=== PATIENT | female | born 1955 ===

== ENCOUNTER 2016-08-20 21:39 | Emergency (ER) | payer SELFPAY ==
[2016-08-20 22:32] VITALS: BP 93/59
[2016-08-20 23:25] LABS: Hematocrit 47.7 % (30.3-42.9); Hemoglobin 14.9 gm/dl (10.1-14.3); Mean Corpuscular HGB Conc 31 % (30-34); Mean Corpuscular Volume 81 fl (79-97); Platelet Count 333 K/mm3 (140-440); Red Cell Distribution Width 14.8 % (13.2-15.2); White Blood Count 14.2 K/mm3 (4.5-11.0)
[2016-08-20 23:35] LABS: Mean Corpuscular Hemoglobin 25 pg (28-32)
[2016-08-21 00:20] LABS: Albumin 3.8 g/dL (3.9-5); Albumin/Globulin Ratio 1.5 %; BUN/Creatinine Ratio 9.54; Bilirubin,Total 0.7 mg/dL (0.1-1.2); Calcium 9.3 mg/dL (8.4-10.2); Chloride 105.9 mmol/L (98-107); Potassium 5.2 mmol/L (3.6-5.0); Total Protein 6.4 g/dL (6.3-8.2)
[2016-08-21 00:38] LABS: Bacteria,Urine 2+ /HPF (Negative); Bilirubin,Urine NEG (Negative); Blood,Urine NEG (Negative); Ketones,Urine TR mg/dL (Negative); Leukocyte Esterase,Urine SM (Negative); Mucus,Urine 2+ /HPF; Nitrite,Urine NEG (Negative); Urobilinogen,Urine < 2.0 mg/dL (<2.0)
[2016-08-21 02:57] LABS: Basophils % (Manual) 0 % (0.0-1.8); Blastocytes % (Manual) 0 %; Eosinophils % (Manual) 0 % (0.0-4.3)
[2016-08-21 03:02] LABS: Diff Status Complete; Hypochromasia 1+
--- NOTE | 2016-08-22 15:18 | ED Elopement Review ---
ED Pt Elopement review - Results review Lab results: Laboratory Tests 08/20/16 08/20/16 08/20/16 23:07 23:07 Unknown WBC 14.2 H RBC 5.90 H Hgb 14.9 H Hct 47.7 H MCV 81 MCH 25 L MCHC 31 RDW 14.8 Plt Count 333 Add Manual Diff Complete Total Counted 100 Seg Neuts % (Manual) 73.0 H Band Neutrophils % 10.0 Lymphocytes % (Manual) 12.0 L Reactive Lymphs % (Man) 0 Monocytes % (Manual) 2.0 Eosinophils % (Manual) 0 Basophils % (Manual) 0 Metamyelocytes % 3.0 Myelocytes % 0 Promyelocytes % 0 Blast Cells % 0 Nucleated RBC % Not Reportable Seg Neutrophils # Man 10.4 H Band Neutrophils # 1.4 Lymphocytes # (Manual) 1.7 Abs React Lymphs (Man) 0.0 Monocytes # (Manual) 0.3 Eosinophils # (Manual) 0.0 Basophils # (Manual) 0.0 Metamyelocytes # 0.4 Myelocytes # 0.0 Promyelocytes # 0.0 Blast Cells # 0.0 WBC Morphology Not Reportable Hypersegmented Neuts Not Reportable Hyposegmented Neuts Not Reportable Hypogranular Neuts Not Reportable Smudge Cells Not Reportable Toxic Granulation Not Reportable Toxic Vacuolation Not Reportable Dohle Bodies Not Reportable Pelger-Huet Anomaly Not Reportable Rhea Rods Not Reportable Platelet Estimate Appears normal Clumped Platelets Not Reportable Plt Clumps, EDTA Not Reportable Large Platelets Not Reportable Giant Platelets Not Reportable Platelet Satelliting Not Reportable Plt Morphology Comment Not Reportable RBC Morphology Not Reportable Dimorphic RBCs Not Reportable Polychromasia Not Reportable Hypochromasia 1+ Poikilocytosis Not Reportable Anisocytosis Not Reportable Microcytosis Not Reportable Macrocytosis Not Reportable Spherocytes Not Reportable Pappenheimer Bodies Not Reportable Sickle Cells Not Reportable Target Cells Not Reportable Tear Drop Cells Not Reportable Ovalocytes Not Reportable Helmet Cells Not Reportable [place]-Stone[place] Bodies Not Reportable Petroleum Rings Not Reportable Jose Cells Not Reportable Bite Cells Not Reportable Crenated Cell Not Reportable Elliptocytes Not Reportable Acanthocytes (Spur) Not Reportable Rouleaux Not Reportable Hemoglobin C Crystals Not Reportable Schistocytes Not Reportable Malaria parasites Not Reportable Francisco Bodies Not Reportable Hem Pathologist Commnt No Sodium 142 Potassium 5.2 H Chloride 105.9 Carbon Dioxide 16 L Anion Gap 25 BUN 21 H Creatinine 2.2 H Estimated GFR 23 BUN/Creatinine Ratio 9.54 Glucose 236 H Calcium 9.3 Total Bilirubin 0.7 AST 20 ALT 13 Alkaline Phosphatase 101 Total Protein 6.4 Albumin 3.8 L Albumin/Globulin Ratio 1.5 Lipase 26 Urine Color Vikki Urine Turbidity Clear Urine pH 5.0 Ur Specific [place] 1.025 Urine Protein 30 mg/dl Urine Glucose (UA) Neg Urine Ketones Tr Urine Blood Neg Urine Nitrite Neg Urine Bilirubin Neg Urine Urobilinogen < 2.0 Ur Leukocyte Esterase Sm Urine WBC (Auto) 10.0 H Urine RBC (Auto) 7.0 U Epithel Cells (Auto) 15.0 H Urine Bacteria (Auto) 2+ Hyaline Casts 110 Urine Mucus 2+ - Call Back decision Pt Call Back Decision: Call pt to return to ED BEATA (acute renal failure increased AG hyperK)
== END 2016-08-21 00:50 | disposition left against medical advice (07) ==
LOC: ED 21:39
DX: R10.9 Unspecified abdominal pain (principal); Z53.21 Procedure and treatment not carried out due to patient leaving prior to being seen by health care provider
CPT/HCPCS: 36415; 80053; 81001; 83690; 85007; 85025

== ENCOUNTER 2016-08-22 18:37 | Emergency (ER) | payer MEDICAID ==
[2016-08-22] MEDS ORDERED: NACL 0.9% 1000 ML 1,000 ML IV ONE (19:51)
--- NOTE | 2016-08-22 19:55 | Emergency Department Report ---
HPI - General Chief Complaint: Laceration/Recheck/Suture Time Seen by Provider: 08/22/16 19:25 - HPI HPI: This is a 61-year-old Afro-Naur[place] female presents to the emergency department with a 2-3 day history of generalized abdominal pain and nausea without vomiting. Patient said she ate some pineapple out of a can on Tuesday and shortly afterwards began having these symptoms. She came by ambulance to the emergency department at that time for evaluation but left prior to seeing a physician. She was called back to the emergency department after labs showed her to have some mild hyperkalemia and some renal insufficiency. Patient says she has a history of hypertension. She does not have a primary care doctor if she just moved here from [place]. She still has the symptoms from Tuesday. She has not taken anything for her symptoms prior to presentation. She denies any fever, diarrhea, back pain, dysuria, vaginal bleeding or discharge. ED Past Medical Hx - Past Medical History Previous Medical History?: Yes Hx Hypertension: Yes - Surgical History Past Surgical History?: Yes Additional Surgical History: bilateral wrist surg. TL - Social History Smoking Status: Never Smoker Substance Use Type: None ED Review of Systems ROS: Stated complaint: MEDICAL FOLLOW UP Other details as noted in HPI Comment: All other systems reviewed and negative Constitutional: denies: chills, fever Eyes: denies: eye pain, eye discharge, vision change ENT: denies: ear pain, throat pain Respiratory: denies: cough, shortness of breath, wheezing Cardiovascular: denies: chest pain, palpitations Gastrointestinal: abdominal pain, nausea. denies: vomiting Genitourinary: denies: urgency, dysuria, discharge Musculoskeletal: denies: back pain, joint swelling, arthralgia Skin: denies: rash, lesions Neurological: denies: headache, weakness, paresthesias Physical Exam - Physical Exam Vital Signs: Vital Signs 08/22/16 18:50 Temperature 98.7 F Pulse Rate 74 Respiratory 18 Rate Blood Pressure 146/59 O2 Sat by Pulse 98 Oximetry Physical Exam: GENERAL: The patient is well-developed well-nourished. HEENT: Normocephalic. Atraumatic. Extraocular motions are intact. Patient has moist mucous membranes. Pupils equal reactive to light bilaterally. NECK: Supple. Trachea is midline. CHEST/LUNGS: Clear to auscultation. There is no respiratory distress noted. HEART/CARDIOVASCULAR: Regular. There is no tachycardia. There is no gallop rub or murmur. ABDOMEN: Abdomen is soft. There is generalized tenderness to palpation of the abdomen. No guarding rebound tenderness. No peritoneal signs. Patient has normal bowel sounds. There is no abdominal distention. SKIN: There is no rash. There is no edema. There is no diaphoresis. NEURO: The patient is awake, alert, and oriented. The patient is cooperative. The patient has no focal neurologic deficits. The patient has normal speech. MUSCULOSKELETAL: There is no tenderness or deformity. There is no limitation range of motion. There is no evidence of acute injury. ED Course Vital Signs 08/22/16 18:50 Temperature 98.7 F Pulse Rate 74 Respiratory 18 Rate Blood Pressure 146/59 O2 Sat by Pulse 98 Oximetry ED Medical Decision Making - Lab Data Result diagrams: 08/22/16 20:37 08/22/16 20:37 - Radiology Data Radiology results: report reviewed, image reviewed interpreted by me: X-ray of the abdomen does not show any acute process. CT of the abdomen and pelvis without contrast does not show any acute process. - Medical Decision Making This is a 61-year-old female presents the emergency department with a three-day history of some abdominal pain. There is been some nausea and vomiting as well but that was mostly when it first began. The patient was here on Tuesday, 48 hours ago, but was not seen by a physician because she did not stay past getting her blood drawn. At that time she was found to have some renal insufficiency with a creatinine of 2.2 and a GFR of 23%. She was called back because of an elopement review the patient says she is still having the same discomfort. She has some tenderness to palpation of the abdomen but no peritoneal signs, guarding or rebound tenderness. Vital signs stable throughout her ED course. Her labs were rechecked today and she show some improvement in her renal insufficiency with a current creatinine of 1.4 and a GFR of 38%. An abdominal x-ray was done that does not show any acute process. To evaluate her abdominal discomfort as well as renal insufficiency, a CT of the abdomen and pelvis without contrast was done. He came back normal including normal appearing kidneys without any signs of hydronephrosis, nephrolithiasis or any other abnormalities. Upon reevaluation the patient is feeling slightly improved despite the fact that she did not get any pain medication. Since the patient shows some improvement of her renal insufficiency and it is not at the level that requires any dialysis and there are no electrolyte abnormalities, the patient appears safe for discharge home. Her abdominal discomfort is improved. There has been no further signs of nausea or vomiting in the emergency department. The patient was given multiple referrals for primary care and for nephrology. She's been encouraged to follow- up in the next 24-48 hours with these physicians. She will return to the ER with any worsening of her symptoms or any acute distress. - Differential Diagnosis colitis, diverticulitis, nephrolithiasis, hydronephrosis Critical Care Time: No Critical care attestation.: If time is entered above; I have spent that time in minutes in the direct care of this critically ill patient, excluding procedure time. ED Disposition Clinical Impression: Renal insufficiency Abdominal pain Qualifiers: Abdominal location: generalized Qualified Code(s): R10.84 - Generalized abdominal pain Disposition: DISCHARGED TO HOME OR SELFCARE Is pt being admited?: No Condition: Stable Instructions: Abdominal Pain (ED), Impaired Kidney Function (ED) Additional Instructions: Please follow-up with a primary care doctor and a home security professional as soon as you can. Return to the emergency department with any worsening of your symptoms or any acute distress. Referrals: PRIMARY CARE, [Primary Care Provider] - 3-5 Days BRAYAN TURCIOS MD [Staff Physician] - 3-5 Days OSCAR DUPONT MD [Staff Physician] - 3-5 Days OLIVIA LIM MD [Staff Physician] - 3-5 Days ANGELA HERNANDEZ JR, MD [Staff Physician] - 3-5 Days JAMILA LOVE MD [Staff Physician] - 3-5 Days SUSY BECKHAM MD [Staff Physician] - 3-5 Days Time of Disposition: 23:20
[2016-08-22 20:35] VITALS: BP 148/78
[2016-08-22 21:13] LABS: Albumin 3.6 g/dL (3.9-5); Albumin/Globulin Ratio 1.1 %; BUN/Creatinine Ratio 19.28; Chloride 103.7 mmol/L (98-107); Potassium 4.2 mmol/L (3.6-5.0); Total Protein 6.8 g/dL (6.3-8.2)
[2016-08-22 21:15] LABS: Bacteria,Urine 1+ /HPF (Negative); Bilirubin,Urine NEG (Negative); Blood,Urine SM (Negative); Ketones,Urine NEG (Negative); Leukocyte Esterase,Urine TR (Negative); Mucus,Urine FEW /HPF; Nitrite,Urine NEG (Negative); Protein,Urine <15 mg/dL mg/dL (Negative); Urobilinogen,Urine < 2.0 mg/dL (<2.0)
[2016-08-22 21:17] LABS: Mean Corpuscular HGB Conc 30 % (30-34); Mean Corpuscular Volume 84 fl (79-97); Platelet Count 204 K/mm3 (140-440); Red Blood Count 4.88 M/mm3 (3.65-5.03); Red Cell Distribution Width 15.2 % (13.2-15.2); White Blood Count 6.1 K/mm3 (4.5-11.0)
[2016-08-22 21:23] LABS: Mean Corpuscular Hemoglobin 25 pg (28-32)
[2016-08-22 21:29] LABS: Hematocrit 40.8 % (30.3-42.9)
[2016-08-22 21:30] LABS: Hemoglobin 12.2 gm/dl (10.1-14.3)
[2016-08-22 21:33] LABS: Eosinophils % (Auto) 1.6 % (0.0-4.3)
[2016-08-22 21:34] LABS: Basophils % (Auto) 0.6 % (0.0-1.8)
[2016-08-22 21:35] LABS: Diff Status Complete
--- NOTE | 2016-08-22 23:06 | Cat Scan Report ---
FINAL REPORT EXAM: CT ABDOMEN PELVIS WO CON HISTORY: abd pain TECHNIQUE: CT images obtained through the Abdomen and Pelvis without contrast. Transaxial,coronal and sagittal reformats are provided. PRIORS: None. FINDINGS: Imaged intrathoracic contents are unremarkable. Kidneys are normal in size, axis and position. No hydronephrosis or nephrolithiasis. The ureters are normal in course and caliber. No stones are seen within the urinary bladder. Punctate calcified left hepatic granuloma. The liver, gallbladder, pancreas, spleen, and adrenal glands otherwise demonstrate an unremarkable noncontrast appearance. Hollow enteric organs are normal in course and caliber. Appendix is normal. No intra-abdominal free air/fluid or lymphadenopathy. Aorta is normal in course and caliber. Anteverted uterus. No free fluid in the pelvis. Superficial soft tissues are unremarkable. No acute or aggressive appearing skeletal findings. IMPRESSION: No acute intra-abdominal process.
--- NOTE | 2016-08-23 08:51 | XRay Report ---
ABDOMEN, 2 views: History: Abdominal pain. There is no evidence of free air beneath the diaphragms. The gas pattern within the abdomen is unremarkable. There is no evidence of bowel dilatation, significant air-fluid levels, or pathologic calcifications. Organ shadows are unremarkable. IMPRESSION: Unremarkable abdomen.
== END 2016-08-22 23:53 | disposition home or self-care (01) ==
LOC: ED 18:37
DX: N28.9 Disorder of kidney and ureter, unspecified (principal); R10.84 Generalized abdominal pain; I10 Essential (primary) hypertension
CPT/HCPCS: 36415; 74020; 74176; 80053; 81001; 83690; 85025; 96360; 99284; J7030

== ENCOUNTER 2017-04-16 19:41 | Inpatient (IN) | payer MEDICARE ==
[2017-04-16] MEDS ORDERED: CATAPRES PO ONE (20:15)
[2017-04-16 20:38] LABS: Basophils % (Auto) 0.6 % (0.0-1.8); Eosinophils % (Auto) 1.5 % (0.0-4.3); Mean Corpuscular HGB Conc 32 % (30-34); Mean Corpuscular Hemoglobin 26 pg (28-32); Mean Corpuscular Volume 82 fl (79-97); Platelet Count 239 K/mm3 (140-440); Red Blood Count 5.28 M/mm3 (3.65-5.03); Red Cell Distribution Width 14.8 % (13.2-15.2); White Blood Count 6.1 K/mm3 (4.5-11.0)
[2017-04-16 20:58] LABS: Anion Gap 18 mmol/L; BUN/Creatinine Ratio 11; Blood Urea Nitrogen 11 mg/dL (7-17); Calcium 9.4 mg/dL (8.4-10.2); Carbon Dioxide 26 mmol/L (22-30); Chloride 102.3 mmol/L (98-107); Glucose 180 mg/dL (65-100); Potassium 3.9 mmol/L (3.6-5.0); Sodium 142 mmol/L (137-145)
[2017-04-17] MEDS ORDERED: PEPCID IV ONE (03:48)
[2017-04-17] MEDS ORDERED: BABY ASPIRIN PO ONE (03:48)
[2017-04-17] MEDS ORDERED: NACL 0.9% 500 ML 500 ML IV ONE (03:48)
[2017-04-17] MEDS ORDERED: CARAFATE PO ONE (03:48)
[2017-04-17] MEDS ORDERED: NITROSTAT SL PRN (03:48)
--- NOTE | 2017-04-17 03:49 | Emergency Department Report ---
ED Chest Pain HPI - General Chief Complaint: Chest Pain Stated Complaint: CP; HTN Time Seen by Provider: 04/17/17 03:37 Source: patient, RN notes reviewed, old records reviewed Mode of arrival: Ambulatory Limitations: No Limitations - History of Present Illness Initial Comments: This is a 62-year-old female. Patient is previously known to this provider. Has a past medical history of hypertension and high cholesterol. Reports that her father of a massive heart attack, reports that her sister while on the operating room table, supposed to get open-heart surgery. Last stress test was approximately 2 years ago, takes aspirin on a daily basis. Presents to the etiology of sided chest wall pain. The pain has been present for 2 to 3 days. It does not radiate anywhere. It has no exacerbating or relieving factors. There is no neck pain, shortness of breath, vomiting, diaphoresis. There is no leg pain, there is no leg swelling, no recent surgeries, no recent hospitalizations. MD Complaint: chest pain -: Gradual Onset: during rest Pain Location: left chest Pain Radiation: none Severity: mild Severity scale (0 -10): 10 Quality: aching Consistency: intermittent Improves With: nothing Worsens With: nothing Aspirin use within the Past 7 Days: (1) Yes - Related Data On Oral Contraceptives: No Home Medications Medication Instructions Recorded Confirmed Last Taken Aspirin BABY CHEW TAB 81 mg PO DAILY 04/16/17 04/16/17 Unknown AtorvaSTATin 10 mg PO DAILY 04/16/17 04/16/17 Unknown Clonidine 0.1 mg PO BID 04/16/17 04/16/17 Unknown Lisinopril 20 mg PO DAILY 04/16/17 04/16/17 Unknown Allergies Allergy/AdvReac Type Severity Reaction Status Date / Time cephalexin monohydrate Allergy Hives Verified 04/17/17 03:41 [From Keflex] ciprofloxacin [From Cipro] Allergy Hives Verified 04/17/17 03:41 erythromycin base Allergy Hives Verified 04/17/17 03:41 ibuprofen Allergy Hives Verified 04/17/17 03:41 naproxen Allergy Hives Verified 04/17/17 03:41 Penicillins Allergy Hives Verified 04/17/17 03:41 Sulfa (Sulfonamide Allergy Hives Verified 04/17/17 03:41 Antibiotics) tramadol Allergy Hives Verified 04/17/17 03:41 Heart Score - HEART Score History: Slightly suspicious EKG: Non-specific Age: 45-65 Risk factors: > 3 risk factors or hx of atherosclerotic disease Troponin: < normal limit HEART Score: 4 - Critical Actions Critical Actions: 4-6 pts:12-16.6% risk of adverse cardiac event. Should be admitted ED Review of Systems ROS: Stated complaint: CP; HTN Other details as noted in HPI Constitutional: denies: fever Eyes: denies: vision change ENT: denies: epistaxis Respiratory: denies: cough Cardiovascular: chest pain Gastrointestinal: denies: nausea, vomiting Musculoskeletal: as per HPI. denies: back pain Skin: as per HPI Neurological: as per HPI Psychiatric: as per HPI ED Past Medical Hx - Past Medical History Hx Hypertension: Yes Additional medical history: Elevated cholesterol - Surgical History Additional Surgical History: bilateral wrist surg. TL - Social History Smoking Status: Never Smoker Substance Use Type: None - Medications Home Medications: Home Medications Medication Instructions Recorded Confirmed Last Taken Type Aspirin BABY CHEW TAB 81 mg PO DAILY 04/16/17 04/16/17 Unknown History AtorvaSTATin 10 mg PO DAILY 04/16/17 04/16/17 Unknown History Clonidine 0.1 mg PO BID 04/16/17 04/16/17 Unknown History Lisinopril 20 mg PO DAILY 04/16/17 04/16/17 Unknown History ED Physical Exam - General Limitations: No Limitations General appearance: alert, in no apparent distress - Head Head exam: Present: atraumatic, normocephalic - Eye Eye exam: Present: normal appearance, EOMI. Absent: nystagmus - ENT ENT exam: Present: normal exam, normal orophraynx, mucous membranes moist, normal external ear exam - Neck Neck exam: Present: normal inspection - Respiratory Respiratory exam: Present: normal lung sounds bilaterally, other (breast exam within normal limits. During breast examination, escorted by nurse Geovanni Carrera.) . Absent: respiratory distress, chest wall tenderness - Cardiovascular Cardiovascular Exam: Present: regular rate, normal rhythm, normal heart sounds. Absent: systolic murmur, diastolic murmur, rubs, gallop - GI/Abdominal GI/Abdominal exam: Present: soft, normal bowel sounds. Absent: distended, tenderness, guarding, rebound, rigid, pulsatile mass - Extremities Exam Extremities exam: Present: normal inspection, full ROM, normal capillary refill. Absent: pedal edema, joint swelling, calf tenderness - Back Exam Back exam: Present: normal inspection, full ROM. Absent: tenderness, CVA tenderness (R), paraspinal tenderness, vertebral tenderness - Neurological Exam Neurological exam: Present: alert, oriented X3, CN II-XII intact, other ( Extraocular movements intact. Tongue midline. No facial droop. Facial sensation intact to light touch in the V1, V2, V3 distribution bilaterally. 5 and 5 strength in 4 extremities.. Sensation is intact to light touch in 4 extremities.). Absent: motor sensory deficit - Psychiatric Psychiatric exam: Present: normal affect, normal mood - Skin Skin exam: Present: warm, dry, intact, normal color. Absent: rash ED Course Vital Signs 04/16/17 04/16/17 04/17/17 19:56 20:26 00:05 Temperature 98.4 F 97.7 F Pulse Rate 103 H 103 H 73 Respiratory 18 16 Rate Blood Pressure 181/82 182/82 99/54 Blood Pressure [Left] O2 Sat by Pulse 97 100 Oximetry 04/17/17 04/17/17 03:56 04:30 Temperature 98.2 F Pulse Rate 55 L 52 L Respiratory 16 15 Rate Blood Pressure 98/49 Blood Pressure 106/35 [Left] O2 Sat by Pulse 99 96 Oximetry CARMELO score - Carmelo Score Age > 65: (0) No Aspirin use within the Past 7 Days: (1) Yes 3 or more CAD Risk Factors: (1) Yes 2 or more Angina events in past 24 hrs: (1) Yes Known CAD with more than 50% Stenosis: (0) No Elevated Cardiac Markers: (0) No ST Deviation Greater than 0.5mm: (0) No CARMELO Score: 3 ED Medical Decision Making - Lab Data Result diagrams: 04/16/17 20:17 04/16/17 20:17 Vital Signs 04/16/17 04/16/17 04/17/17 19:56 20:26 00:05 Temperature 98.4 F 97.7 F Pulse Rate 103 H 103 H 73 Respiratory 18 16 Rate Blood Pressure 181/82 182/82 99/54 O2 Sat by Pulse 97 100 Oximetry Lab Results 04/16/17 04/16/17 04/16/17 Range/Units 20:17 20:17 23:24 WBC 6.1 (4.5-11.0) K/mm3 RBC 5.28 H (3.65-5.03) M/mm3 Hgb 14.0 (10.1-14.3) gm/dl Hct 43.0 H (30.3-42.9) % MCV 82 (79-97) fl MCH 26 L (28-32) pg MCHC 32 (30-34) % RDW 14.8 (13.2-15.2) % Plt Count 239 (140-440) K/mm3 Lymph % (Auto) 37.4 H (13.4-35.0) % [place] % (Auto) 8.0 H (0.0-7.3) % Eos % (Auto) 1.5 (0.0-4.3) % Baso % (Auto) 0.6 (0.0-1.8) % Lymph # 2.3 (1.2-5.4) K/mm3 [place] # 0.5 (0.0-0.8) K/mm3 Eos # 0.1 (0.0-0.4) K/mm3 Baso # 0.0 (0.0-0.1) K/mm3 Seg Neutrophils % 52.5 (40.0-70.0) % Seg Neutrophils # 3.2 (1.8-7.7) K/mm3 Sodium 142 (137-145) mmol/L Potassium 3.9 (3.6-5.0) mmol/L Chloride 102.3 (98-107) mmol/L Carbon Dioxide 26 (22-30) mmol/L Anion Gap 18 mmol/L BUN 11 (7-17) mg/dL Creatinine 1.0 (0.7-1.2) mg/dL Estimated GFR 56 ml/min BUN/Creatinine Ratio 11 % Glucose 180 H (65-100) mg/dL Calcium 9.4 (8.4-10.2) mg/dL Troponin T < 0.010 < 0.010 (0.00-0.029) ng/mL 04/17/17 Range/Units 02:52 WBC (4.5-11.0) K/mm3 RBC (3.65-5.03) M/mm3 Hgb (10.1-14.3) gm/dl Hct (30.3-42.9) % MCV (79-97) fl MCH (28-32) pg MCHC (30-34) % RDW (13.2-15.2) % Plt Count (140-440) K/mm3 Lymph % (Auto) (13.4-35.0) % [place] % (Auto) (0.0-7.3) % Eos % (Auto) (0.0-4.3) % Baso % (Auto) (0.0-1.8) % Lymph # (1.2-5.4) K/mm3 [place] # (0.0-0.8) K/mm3 Eos # (0.0-0.4) K/mm3 Baso # (0.0-0.1) K/mm3 Seg Neutrophils % (40.0-70.0) % Seg Neutrophils # (1.8-7.7) K/mm3 Sodium (137-145) mmol/L Potassium (3.6-5.0) mmol/L Chloride (98-107) mmol/L Carbon Dioxide (22-30) mmol/L Anion Gap mmol/L BUN (7-17) mg/dL Creatinine (0.7-1.2) mg/dL Estimated GFR ml/min BUN/Creatinine Ratio % Glucose (65-100) mg/dL Calcium (8.4-10.2) mg/dL Troponin T < 0.010 (0.00-0.029) ng/mL - EKG Data -: EKG Interpreted by Me - EKG Data 04/17/17 03:56 EKG #1 demonstrates normal sinus, 85 bpm, QTC within normal limits, atrial enlargement, not morphologically consistent with ST elevation myocardial infarction. EKG #2 unchanged, with exception of Q waves in 1 and aVL, not morphologically consistent with STEMI, appears unchanged from prior. - Radiology Data Radiology results: image reviewed interpreted by me: X-ray of the chest, interpreted by me: - Medical Decision Making Differential diagnosis, including but not limited to: Acute coronary syndrome, pneumonia, GERD, gastritis, costochondritis, reflux, hiatal hernia Assessment and plan: 62-year-old female with chest pain and no shortness of breath. Very strong family history, multiple vascular risk factors, clinical history atypical, however given such strong family history, patient will be admitted to the hospital for acute coronary syndrome risk stratification. There are no pulmonary embolus or DVT risk factors and I find the patient to be low risk clinically and by well's criteria. She was hypertensive in the waiting room, and was given clonidine, her blood pressure slightly decreased upon arrival into the treatment room, and patient will be given IV fluids, and aspirin. Case was presented to the Hospital physician, Dr. Peter, who accepted the patient to the medical service for acute coronary syndrome or certification. Critical care attestation.: If time is entered above; I have spent that time in minutes in the direct care of this critically ill patient, excluding procedure time. ED Disposition Clinical Impression: Chest pain Disposition: 09 OP ADMIT IP TO THIS HOSP Is pt being admited?: Yes Condition: Good Instructions: Chest Pain (ED) Referrals: PRIMARY CARE, [Primary Care Provider] - 3-5 Days
--- NOTE | 2017-04-17 04:41 | XRay Report ---
FINAL REPORT EXAM: XR CHEST 1V AP HISTORY: cp TECHNIQUE: A portable upright view of the chest was submitted. FINDINGS: The heart size and mediastinum do not show any acute changes. There are calcified granulomas in left hilum. Pleural fluid is not seen. There are EKG leads overlying the chest wall. The bones and soft tissues do not show any acute changes. IMPRESSION: No active chest disease.
[2017-04-17] MEDS ORDERED: MORPHINE IV PRN (05:14)
[2017-04-17] MEDS ORDERED: TYLENOL PO PRN (05:15)
[2017-04-17] MEDS ORDERED: ZOFRAN IV PRN (05:16)
[2017-04-17] MEDS: CATAPRES PO SCH ×2 (06:15→12:10)
[2017-04-17] MEDS ORDERED: LEXISCAN IV ONE ×2 (08:15→08:40)
--- NOTE | 2017-04-17 12:12 | Progress Note ---
Assessment and Plan -Chest pain: likely form GERD Has normal Kaylan x 2. EKG showed nonspecific ST segment changes. Pt has a strong family history of CA Continue with ASA, NTG, [place] and oxygen. had stress thallium today. result pending -Hyperglycemia; Obtain A1c commence SSI. consistent CHO diet - Obesity: BMI 34.9 Dietary counselling given - DVT and Gi prophylaxis: with Lovenox and Pepcid Subjective Date of service: 04/17/17 Principal diagnosis: Chest pain Interval history: Chest pain resolving. No shortness of breath Objective - Constitutional Vitals: Vital Signs - 12hr 04/17/17 04/17/17 04/17/17 00:05 03:56 04:30 Temperature 97.7 F 98.2 F Pulse Rate 73 55 L 52 L Respiratory 16 16 15 Rate Blood Pressure 99/54 98/49 Blood Pressure 106/35 [Left] O2 Sat by Pulse 100 99 96 Oximetry 04/17/17 04/17/17 04/17/17 05:30 06:00 06:15 Temperature Pulse Rate 52 L 52 L 52 L Respiratory 14 11 L Rate Blood Pressure 101/48 101/48 101/48 Blood Pressure [Left] O2 Sat by Pulse 96 100 Oximetry 04/17/17 04/17/17 04/17/17 07:15 08:00 09:44 Temperature 98.3 F 97.7 F Pulse Rate 48 L 45 L 51 L Respiratory 16 20 Rate Blood Pressure Blood Pressure 90/41 103/65 [Left] O2 Sat by Pulse 96 100 Oximetry General appearance: Present: no acute distress, well-nourished - EENT Eyes: PERRL, EOM intact Ears: bilateral: normal - Neck Neck: supple, normal ROM - Respiratory Respiratory effort: normal Respiratory: bilateral: CTA - Cardiovascular Rhythm: regular Heart Sounds: Present: S1 & S2. Absent: gallop, rub Extremities: pulses intact, No edema, normal color, Full ROM - Gastrointestinal General gastrointestinal: Present: soft, non-tender, non-distended, normal bowel sounds - Integumentary Integumentary: clear, warm, dry - Musculoskeletal Musculoskeletal: 1, strength equal bilaterally - Neurologic Neurologic: moves all extremities - Psychiatric Psychiatric: memory intact, appropriate mood/affect, intact judgment & insight - Labs CBC & Chem 7: 04/16/17 20:17 04/16/17 20:17 Labs: Abnormal lab results 04/16/17 04/16/17 Range/Units 20:17 20:17 RBC 5.28 H (3.65-5.03) M/mm3 Hct 43.0 H (30.3-42.9) % MCH 26 L (28-32) pg Lymph % (Auto) 37.4 H (13.4-35.0) % [place] % (Auto) 8.0 H (0.0-7.3) % Glucose 180 H (65-100) mg/dL
[2017-04-17] MEDS: ZESTRIL PO SCH (12:16)
[2017-04-17] MEDS: ASPIRIN PO SCH (12:17)
[2017-04-17] MEDS: HEPARIN SUB-Q SCH ×2 (12:17→21:27)
--- NOTE | 2017-04-17 12:38 | Treadmill Report ---
REASON FOR STUDY: Chest pain. STRESS TEST PROTOCOL: The patient received 0.4 of Lexiscan intravenously over 10 seconds. Tc-99m tetrofosmin was subsequently injected. Baseline EKG, sinus bradycardia. T-wave abnormality. Consider inferior ischemia. Lexiscan EKG, she developed diffuse T-wave abnormalities. No chest pain. No arrhythmias. IMPRESSION: Nondiagnostic due to nonspecific EKG abnormalities. Nuclear imaging report to follow. JOB# [id number] AGO/NTS
--- NOTE | 2017-04-17 15:56 | Consultation ---
History of Present Illness Consult date: 04/17/17 Requesting physician: HOSEA GUERIN Consult reason: chest pain, other (abnormal stress test) History of present illness: She claims that she presented to the emergency department because her blood pressure had been elevated at home for the past 3 days. Three days ago, she started experiencing a sharp precordial chest pain intermittently. After ruling out for acute myocardial infarction, she underwent a pharmacologic stress test with nuclear imaging this morning. Her nuclear scan was technically suboptimal in quality. It revealed a large, partially reversible inferior and inferoseptal defect, as well as a small fixed apical defect. Gated SPECT ejection fraction was 66%. Past History Past Medical History: hypertension, hyperlipidemia Past Surgical History: Other (tubal ligation and bilateral carpal tunnel release ) Social history: denies: smoking, alcohol abuse Family history: CAD Medications and Allergies Allergies Allergy/AdvReac Type Severity Reaction Status Date / Time cephalexin monohydrate Allergy Hives Verified 04/17/17 03:41 [From Keflex] ciprofloxacin [From Cipro] Allergy Hives Verified 04/17/17 03:41 erythromycin base Allergy Hives Verified 04/17/17 03:41 ibuprofen Allergy Hives Verified 04/17/17 03:41 naproxen Allergy Hives Verified 04/17/17 03:41 Penicillins Allergy Hives Verified 04/17/17 03:41 Sulfa (Sulfonamide Allergy Hives Verified 04/17/17 03:41 Antibiotics) tramadol Allergy Hives Verified 04/17/17 03:41 Home Medications Medication Instructions Recorded Confirmed Last Taken Type Aspirin BABY CHEW TAB 81 mg PO DAILY 04/16/17 04/16/17 Unknown History AtorvaSTATin 10 mg PO DAILY 04/16/17 04/16/17 Unknown History Clonidine 0.1 mg PO BID 04/16/17 04/16/17 Unknown History Lisinopril 20 mg PO DAILY 04/16/17 04/16/17 Unknown History Active Meds: Active Medications Acetaminophen (Tylenol) 650 mg PO Q6H PRN PRN Reason: For Pain/Fever/Headache Aspirin (Aspirin) 325 mg PO QDAY [facility] Last Admin: 04/17/17 12:17 Dose: 325 mg Atorvastatin Calcium (Lipitor) 10 mg PO QHS [facility] Clonidine HCl (Catapres) 0.1 mg PO BID [facility] Last Admin: 04/17/17 12:10 Dose: Not Given Heparin Sodium (Porcine) (Heparin) 5,000 unit SUB-Q Q12HR [facility] Last Admin: 04/17/17 12:17 Dose: 5,000 unit Lisinopril (Zestril) 20 mg PO QDAY [facility] Last Admin: 04/17/17 12:16 Dose: Not Given Morphine Sulfate (Morphine) 2 mg IV Q3H PRN PRN Reason: Pain, Moderate (4-6) Nitroglycerin (Nitrostat) 0.4 mg SL .Q5MIN PRN PRN Reason: Chest Pain Ondansetron HCl (Zofran) 4 mg IV Q8H PRN PRN Reason: Nausea And Vomiting Review of Systems Constitutional: no fever, no chills Ears, nose, mouth and throat: no ear pain, no ear discharge, no sore throat Cardiovascular: chest pain, no orthopnea, no palpitations, no lightheadedness, no shortness of breath Respiratory: no cough, no hemoptysis, no shortness of breath Gastrointestinal: no abdominal pain, no nausea, no vomiting, no diarrhea, no constipation Genitourinary Female: no dysuria, no urinary frequency Rectal: no pain, no bleeding Musculoskeletal: no neck stiffness, no neck pain, no myalgias Integumentary: no rash, no pruritis Neurological: no weakness, no parathesias, no numbness, no headaches Endocrine: no cold intolerance, no heat intolerance Hematologic/Lymphatic: no easy bruising, no easy bleeding Allergic/Immunologic: no urticaria, no wheezing Physical Examination Vital Signs Last Vital Signs Temp 97.7 F 04/17/17 09:44 Pulse 74 04/17/17 12:10 Resp 20 04/17/17 09:44 BP 103/54 04/17/17 10:43 Pulse Ox 100 04/17/17 09:44 General appearance: no acute distress HEENT: Positive: EOMI Neck: Positive: neck supple, trachea midline Cardiac: Positive: Reg Rate and Rhythm, S1/S2 Lungs: Positive: clear to auscultation Neuro: Positive: Grossly Intact Abdomen: Positive: Soft, Active Bowel Sounds Skin: Positive: Clear. Negative: Rash Musculoskeletal: Normal Range of Motion Extremities: Present: normal. Absent: edema Results 04/16/17 20:17 04/16/17 20:17 CBC 04/16/17 Range/Units 20:17 WBC 6.1 (4.5-11.0) K/mm3 RBC 5.28 H (3.65-5.03) M/mm3 Hgb 14.0 (10.1-14.3) gm/dl Hct 43.0 H (30.3-42.9) % Plt Count 239 (140-440) K/mm3 Lymph # 2.3 (1.2-5.4) K/mm3 [place] # 0.5 (0.0-0.8) K/mm3 Eos # 0.1 (0.0-0.4) K/mm3 Baso # 0.0 (0.0-0.1) K/mm3 Comprehensive Metabolic Panel 04/16/17 Range/Units 20:17 Sodium 142 (137-145) mmol/L Potassium 3.9 (3.6-5.0) mmol/L Chloride 102.3 (98-107) mmol/L Carbon Dioxide 26 (22-30) mmol/L BUN 11 (7-17) mg/dL Creatinine 1.0 (0.7-1.2) mg/dL Glucose 180 H (65-100) mg/dL Calcium 9.4 (8.4-10.2) mg/dL - Imaging and Cardiology EKG: image reviewed EKG interpretations - Telemetry EKG Rhythm: Sinus Rhythm - EKG Sinus rhythms and dysrhythmias: sinus rhythm Assessment and Plan Schedule for coronary angiography in a.m. The test has been discussed with the patient in detail and she has agreed to proceed. - Patient Problems (1) Chest pain Current Visit: Yes Status: Acute (2) Abnormal stress test Current Visit: Yes Status: Acute (3) Hypertension Current Visit: Yes Status: Chronic Qualifiers: Hypertension type: essential hypertension Qualified Code(s): I10 - Essential (primary) hypertension
[2017-04-17] MEDS ORDERED: NACL 0.9% 500 ML 500 ML IV SCH (16:00)
[2017-04-17 16:23] LABS: Creatine Kinase MB 1.6 ng/mL (0.0-4.0)
[2017-04-17 16:24] LABS: Creatine Kinase 70 units/L (30-135)
[2017-04-17] MEDS: LOPRESSOR PO SCH (21:25)
--- NOTE | 2017-04-18 00:27 | Treadmill Report ---
REASON FOR STUDY: Chest pain. IMAGING PROTOCOL: The patient received 10 mCi of technetium-99m Tetrofosmin for rest imaging, and 28 mCi of technetium-99m Tetrofosmin for stress imaging. Imaging for all procedures was completed 30-90 minutes following the initial injection of Technetium 99m Tetrofosmin. SPECT imaging in the 180 degree arc was performed in the right anterior oblique projection. Computerized reconstruction of the images was performed for analysis. NUCLEAR IMAGING RESULTS: Technically suboptimal study due to significant soft tissue attenuation artifact. Normal left ventricular cavity size with no change from stress to rest. Distribution of radionuclide within the left ventricle revealed a large area of photo-induction involving the inferior and inferoseptal region. The degree of photo-induction is moderate. Rest imaging showed partial improvement in this defect. In addition, there is a small area of photo-induction involving the apex. The degree of photo-induction is moderate. Rest imaging does not show any significant improvement in this defect. Gated SPECT imaging revealed normal global LV systolic function with no significant wall motion abnormalities. The calculated left ventricular ejection fraction is 66%. IMPRESSION: Technically suboptimal study. Large, partially reversible inferior and inferoseptal defect. Small fixed apical defect. Normal global LV systolic function with no significant wall motion abnormalities. Calculated ejection fraction of 66%. These findings suggest a small area of prior infarction with moderate residual ischemia in the right coronary artery territory. In addition, there is suggestion of a small area of prior infarction in the left anterior descending coronary artery territory. JOB# [id number] [facility]/NTS
[2017-04-18 06:09] LABS: Basophils % (Auto) 0.6 % (0.0-1.8); Eosinophils % (Auto) 2.7 % (0.0-4.3); Hematocrit 38.6 % (30.3-42.9); Hemoglobin 12.5 gm/dl (10.1-14.3); Mean Corpuscular HGB Conc 32 % (30-34); Mean Corpuscular Hemoglobin 26 pg (28-32); Mean Corpuscular Volume 82 fl (79-97); Platelet Count 190 K/mm3 (140-440); Red Blood Count 4.74 M/mm3 (3.65-5.03); White Blood Count 5.7 K/mm3 (4.5-11.0)
[2017-04-18 06:18] LABS: INR 0.91 (0.87-1.13)
[2017-04-18 06:23] LABS: Anion Gap 15 mmol/L; BUN/Creatinine Ratio 16; Blood Urea Nitrogen 14 mg/dL (7-17); Calcium 9.1 mg/dL (8.4-10.2); Carbon Dioxide 26 mmol/L (22-30); Chloride 107.7 mmol/L (98-107); Glucose 104 mg/dL (65-100); Potassium 4.7 mmol/L (3.6-5.0); Sodium 144 mmol/L (137-145)
--- NOTE | 2017-04-18 06:33 | History and Physical Report ---
CHIEF COMPLAINT: Chest pain. HISTORY OF PRESENT ILLNESS: The patient is a 62-year-old female presenting with 2-day history of precordial chest pain, pain does not radiate and is intermittent in nature and dull as well in nature. There is no history of associated shortness of breath and there is no history of nausea and vomiting, no history of diaphoresis or dizziness and pain resolved on its own prior to evaluation of patient. PAST MEDICAL HISTORY: Pertinent for hypertension, hypercholesterolemia. PAST SURGICAL HISTORY: Pertinent for bilateral wrist surgery and tubal ligation. FAMILY HISTORY: Strongly positive for coronary artery disease in the father. SOCIAL HISTORY: The patient does not smoke, does not drink alcohol, and does not use illicit drugs. MEDICATIONS: The patient is on aspirin 81 mg daily, atorvastatin 10 mg by mouth daily, clonidine 0.1 mg by mouth twice daily, lisinopril 20 mg by mouth daily. ALLERGIES: THE PATIENT IS ALLERGIC TO CEPHALEXIN MONOHYDRATE, CIPROFLOXACIN-ERYTHROMYCIN BASE AND PATIENT IS ALSO ALLERGIC TO OTHER MEDICATIONS THAT ARE NOT TRULY LISTED. REVIEW OF SYSTEMS: CONSTITUTIONAL: There is no fever, no chills, no diaphoresis. HEENT: There is no headache or sore throat. CARDIOVASCULAR SYSTEM: Chest pain is present. No orthopnea. RESPIRATORY SYSTEM: There is no shortness of breath or cough. GASTROINTESTINAL SYSTEM: There is no nausea, no vomiting, no abdominal pain, diarrhea or constipation. NEUROLOGICAL SYSTEM: There is no numbness, no dizziness, no altered mental status. MUSCULOSKELETAL SYSTEM: There is no joint pain or swelling. DERMATOLOGICAL SYSTEM: There is no skin rash or itching. GENITOURINARY SYSTEM: There is no dysuria, hematuria, or flank pain. Rest of system review is normal. PHYSICAL EXAMINATION: GENERAL: At the time of exam, the patient was found to be alert, oriented x 3, and not in acute distress. VITAL SIGNS: Vital signs shows temperature of 98.2 degrees Fahrenheit, pulse of 62, respirations 15, pulse oximetry of 96% on room air with blood pressure of 98/49. HEENT: Show pupils to be equal, round, reactive to light and accommodation. Extraocular muscles are intact. NECK: Supple with no JVD or carotid bruit. CARDIOVASCULAR SYSTEM: Show first and second heart sounds with no gallops or murmurs. RESPIRATORY SYSTEM: Show good air entry on both sides of the lungs with no abnormal breath sounds. GASTROINTESTINAL SYSTEM: Show abdomen to be full, soft, nontender with no organomegaly or rigidity. NEUROLOGICAL: Shows no focal deficit. MUSCULOSKELETAL SYSTEM: Show no joint swelling or tenderness. DERMATOLOGICAL SYSTEM: Show no skin rash. GENITOURINARY SYSTEM: Showing no costovertebral angle tenderness. PERTINENT LABORATORY AND IMAGING STUDIES: The patient had chemistry done that shows normal electrolytes, normal cardiac enzymes showing 2 levels of troponin to be less than 0.010. The patient's CBC shows normal white count, normal hemoglobin, and slightly elevated hematocrit of 43 with CBC differential showing elevated lymphocyte of 37.4% and elevated monocyte count of 8. IMAGING STUDIES: The patient had chest x-ray done that showed no active cardiopulmonary lesion. DIAGNOSIS: Chest pain. PLAN: The patient will be admitted to medical floor on telemetry and will have cardiac enzymes checked q. 6 hours x 2 more levels. The patient will remain n.p.o. for Lexiscan stress test this morning and will be on nitroglycerin sublingual 0.4 mg q. 5 minutes as needed for chest pain. The patient will also be on IV morphine 2 mg every 3 hours as needed for pain and will be on Tylenol 650 mg every 6 hours as needed for fever and headache and will be on aspirin 325 mg by mouth daily. The patient will be on IV Zofran 4 mg every 8 hours for nausea and vomiting and will be on oxygen by nasal cannula at 2 liters per minute. The patient will remain n.p.o. for Lexiscan stress test this morning. JOB# [id number] [facility]/NTS
[2017-04-18] MEDS: LOPRESSOR PO SCH (09:02)
[2017-04-18] MEDS: ZESTRIL PO SCH ×2 (09:03→09:21)
[2017-04-18] MEDS: ASPIRIN PO SCH (09:41)
[2017-04-18] MEDS: HEPARIN SUB-Q SCH (10:15)
[2017-04-18] MEDS ORDERED: HEPARIN/NS 5000 UNIT/500ML(CATH LAB) 1,000 ML IR ONE (11:33)
[2017-04-18] MEDS ORDERED: NITROGLYCERIN SYRINGE 3 ML ONE (11:34)
[2017-04-18] MEDS ORDERED: CALAN ONE (11:34)
[2017-04-18] MEDS ORDERED: XYLOCAINE 2% INFILTRATI ONE (11:34)
[2017-04-18] MEDS ORDERED: HEPARIN 10,000 UNITS/10 ML ONE (11:34)
[2017-04-18] MEDS ORDERED: NACL 0.9% 1000 ML 1,000 ML ONE (11:52)
[2017-04-18] MEDS ORDERED: SUBLIMAZE ONE (11:52)
[2017-04-18] MEDS ORDERED: VERSED ONE (11:52)
--- NOTE | 2017-04-18 12:55 | Progress Note ---
Assessment and Plan s/p C this AM which revealed patent coronaries. Currently stable cardiac status. Pt may discharge home from cardiology standpoint following completion of post-cath order set. Follow up in our [place] office with Dr. Amos on 04/20/2017 @ 3:00PM. The patient has been seen in conjunction with Dr. Romero who agrees with the assessment and plan of care. - Patient Problems (1) Chest pain Current Visit: Yes Status: Resolved (2) Abnormal stress test Current Visit: Yes Status: Acute (3) Hypertension Current Visit: Yes Status: Chronic Qualifiers: Hypertension type: essential hypertension Qualified Code(s): I10 - Essential (primary) hypertension Subjective Date of service: 04/18/17 Principal diagnosis: Chest pain Interval history: pt for [facility] this AM, with no current complaints. Objective Last Vital Signs Temp 97.9 F 04/18/17 08:12 Pulse 58 L 04/18/17 10:00 Resp 16 04/18/17 10:00 BP 134/62 04/18/17 09:21 Pulse Ox 98 04/18/17 08:12 - Physical Examination General: No Apparent Distress HEENT: Positive: EOMI Neck: Positive: neck supple, trachea midline Cardiac: Positive: Reg Rate and Rhythm, S1/S2 Lungs: Positive: clear to auscultation Neuro: Positive: Grossly Intact Abdomen: Positive: Soft, Active Bowel Sounds Skin: Positive: Clear. Negative: Rash Musculoskeletal: Normal Range of Motion Extremities: Present: normal. Absent: edema - Labs and Meds Cardiac Enzymes 04/17/17 Range/Units 14:43 CK-MB (CK-2) 1.6 (0.0-4.0) ng/mL Coagulation 04/18/17 Range/Units 04:48 PT 12.7 (12.2-14.9) Sec. INR 0.91 (0.87-1.13) CBC 04/18/17 Range/Units 04:48 WBC 5.7 (4.5-11.0) K/mm3 RBC 4.74 (3.65-5.03) M/mm3 Hgb 12.5 (10.1-14.3) gm/dl Hct 38.6 (30.3-42.9) % Plt Count 190 (140-440) K/mm3 Lymph # 2.6 (1.2-5.4) K/mm3 [place] # 0.6 (0.0-0.8) K/mm3 Eos # 0.2 (0.0-0.4) K/mm3 Baso # 0.0 (0.0-0.1) K/mm3 Comprehensive Metabolic Panel 04/18/17 Range/Units 04:48 Sodium 144 (137-145) mmol/L Potassium 4.7 D (3.6-5.0) mmol/L Chloride 107.7 H (98-107) mmol/L Carbon Dioxide 26 (22-30) mmol/L BUN 14 (7-17) mg/dL Creatinine 0.9 (0.7-1.2) mg/dL Glucose 104 H (65-100) mg/dL Calcium 9.1 (8.4-10.2) mg/dL - Imaging and Cardiology EKG: image reviewed - EKG Sinus rhythms and dysrhythmias: sinus rhythm
--- NOTE | 2017-04-18 13:04 | Cardiac Catherization Report ---
INDICATION FOR PROCEDURE: The patient is a 62-year-old -[place] female with history of hypertension, hyperlipidemia, strong family history of coronary artery disease admitted with chest pain was noted to have abnormal nuclear pharmacological stress testing, hence scheduled for cardiac catheterization for definitive diagnosis and treatment. The patient is aware of the procedure, potential complications, and alternatives of therapy available. DESCRIPTION OF PROCEDURE: The patient was brought to the catheterization laboratory in a fasting condition. The right wrist area and forearm were thoroughly cleansed with Betadine solution and sterile drapes were applied. Local anesthesia was given using 2% Xylocaine. The patient was sedated with IV Versed and fentanyl. A right radial artery puncture was made using 21-gauge arterial puncture needle. Subsequently, a 5-Green[place]ic slender sheath was introduced. The patient received 3000 units of intravenous heparin and 5 mg of intra-arterial verapamil. Subsequently, using 5-Green[place]ic multipurpose catheter, angiograms of the left coronary artery, right coronary artery and left ventriculogram were obtained in WEINST[place]IN projection. It is to be noted the patient has significant radial spasm requiring more sedation. However, the procedure was uncomplicated. No untoward complications noted. The patient tolerated the procedure well. Following findings were noted: HEMODYNAMICS: 1. Opening aortic pressure 138/65, left ventricular pressure 129/20. No gradient across the aortic valve. Estimated ejection fraction 55%. 2. Left ventriculogram done in WEINST[place]IN projection using hand injection showed normal-size left ventricle with normal contractility. End-diastolic and systolic volumes are normal. Mitral regurgitation could not be evaluated because of limited amount of dye injected. 3. Right coronary artery, dominant vessel, arises normally from right coronary cusp are angiographically smooth and normal. 4. Left coronary artery arises normally from the left coronary cusp. Left main, LAD which is very tortuous and its branches, and circumflex artery and its branch are angiographically smooth and normal. FINAL IMPRESSION: 1. Normal sized left ventricle with normal contractility. 2. Tortuous LAD and its branches, otherwise angiographically smooth and normal coronary arteries. Procedure is uncomplicated. At this time, we will continue risk factor modification and present medical therapy. At this time, angiographically, no coronary artery disease was documented. Procedure was uncomplicated. JOB# [id number] [facility]/NTS
--- NOTE | 2017-04-18 13:10 | Discharge Summary ---
<GERONIMO ADAN - Last Filed: 04/18/17 13:53> Providers - Providers Date of Admission: 04/17/17 05:02 Date of discharge: 04/18/17 Attending physician: DAVID CARTER 04/17/17 13:57 Consult to Physician [CONS] Routine Consulting Provider: JOE ARREDONDO Reason For Exam: CP Place consult to:: Dr. Arredondo Notified:: Dr. Arredondo Phone number called:: s/w him in person Was contact made?: Yes If yes, spoke with:: Dr. Arredondo Time called:: 13:48 04/17/17 15:52 Consult to Physician [CONS] Routine Consulting Provider: JOE ARREDONDO Reason For Exam: Chest pain Place consult to:: Dr. Arredondo Notified:: Keysha MCADAMS 04/18/17 12:52 Consult to Cardiac Rehabilitation [CONS] Routine Reason For Exam: Cardiac Rehab Evaluation Primary care physician: TERMINAL MANAGER Hospitalization Condition: Good Hospital course: This is a 62-year-old female. Patient is previously known to this provider. Has a past medical history of hypertension and high cholesterol. Reports that her father of a massive heart attack, reports that her sister while on the operating room table, supposed to get open-heart surgery. Last stress test was approximately 2 years ago, takes aspirin on a daily basis. Presents to the etiology of sided chest wall pain. The pain has been present for 2 to 3 days. It does not radiate anywhere. It has no exacerbating or relieving factors. There is no neck pain, shortness of breath, vomiting, diaphoresis. There is no leg pain, there is no leg swelling, no recent surgeries, no recent hospitalizations. Chest X ray was negative for active chest disease. Stress test findings sggust a small area of prior infarction with moderate residual ischemia in the R coronary artery territory as well as a small area of prior infarction in the LAD territory. Cardiac cath revealed normal contractility and tortuous LAD but otherwise smooth and normal coronary arteries. Patient was treated with Beta blockers, aspirin, anthypertensives, nitroglycerin and resumed home medications. Patient was treated with Heparin for DVT prophylaxis. Patient is stable and is instructed to f/u with cardiology outpatient in 2 days. Discharge Diagnosis Chest Pain HTN Abnormal Stress Test Disposition: DC-30 STILL A PATIENT Core Measure Documentation - Palliative Care Palliative Care/ Comfort Measures: Not Applicable - Core Measures Any of the following diagnoses?: none Exam - Constitutional Vitals: Temp Pulse Resp BP Pulse Ox 97.9 F 58 L 16 134/62 98 04/18/17 08:12 04/18/17 10:00 04/18/17 10:00 04/18/17 09:21 04/18/17 08:12 General appearance: Present: no acute distress, well-nourished - EENT Eyes: Present: PERRL ENT: hearing intact, clear oral mucosa - Neck Neck: Present: supple, normal ROM - Respiratory Respiratory effort: normal Respiratory: bilateral: CTA - Cardiovascular Heart Sounds: Present: S1 & S2. Absent: rub, click - Extremities Extremities: pulses symmetrical, No edema Peripheral Pulses: within normal limits - Abdominal General gastrointestinal: Present: soft, non-tender, non-distended, normal bowel sounds Female genitourinary: Present: deferred - Rectal Rectal Exam: deferred - Integumentary Integumentary: Present: clear, warm, dry - Musculoskeletal Musculoskeletal: gait normal, strength equal bilaterally - Psychiatric Psychiatric: appropriate mood/affect, intact judgment & insight - Neurologic Neurologic: CNII-XII intact, moves all extremities - Allied Health Allied health notes reviewed: nursing Plan Activity: fall precautions Weight Bearing Status: Weight Bear as Tolerated Diet: low fat, low cholesterol, low salt Additional Instructions: Do not take metoprolol if heart rate is less than 55 beats per minute or if systolic blood pressure (first number) is less than 100 and contact Primary Care Provider. Follow up with: FARZAD ASH MD [Primary Care Provider] - 3-5 Days JOE ARREDONDO MD [Staff Physician] - 48 Hours Prescriptions: Aspirin [Aspirin TAB] 325 mg PO QDAY #30 tablet Metoprolol [Lopressor TAB] 25 mg PO BID 30 Days tablet Nitroglycerin [Nitrostat] 0.4 mg SL .Q5MIN PRN #30 tablet PRN Reason: Chest Pain <DAVID CARTER - Last Filed: 04/18/17 16:42> Providers - Providers Date of Admission: 04/17/17 05:02 Attending physician: DAVID CARTER 04/17/17 13:57 Consult to Physician [CONS] Routine Consulting Provider: JOE ARREDONDO Reason For Exam: CP Place consult to:: Dr. Arredondo Notified:: Dr. Arredondo Phone number called:: s/w him in person Was contact made?: Yes If yes, spoke with:: Dr. Arredondo Time called:: 13:48 04/17/17 15:52 Consult to Physician [CONS] Routine Consulting Provider: JOE ARREDONDO Reason For Exam: Chest pain Place consult to:: Dr. Arredondo Notified:: Keysha MCADAMS 04/18/17 12:52 Consult to Cardiac Rehabilitation [CONS] Routine Reason For Exam: Cardiac Rehab Evaluation Primary care physician: TERMINAL MANAGER Hospitalization Reason for admission: chest pain Pertinent studies: Stress test; abnormal LHC ; nonobstructed coronaries Hospital course: I saw and evaluated the patient. I agree with the findings and the plan of care as documented in the Nurse Practitioner's~note, with the following corrections and additions. Stress test abnormal Left heart catheterization; normal coronaries, normal ejection fraction Cleared by cardiology Time spent for discharge: 32 MIN Core Measure Documentation - Palliative Care Palliative Care/ Comfort Measures: Not Applicable - Core Measures Any of the following diagnoses?: none Exam - Constitutional Vitals: Temp Pulse Resp BP Pulse Ox 98.1 F 62 18 89/61 97 04/18/17 15:54 04/18/17 15:45 04/18/17 12:52 04/18/17 15:45 04/18/17 15:45
[2017-04-18 15:54] VITALS: BP 89/61
== END 2017-04-18 18:17 | disposition home or self-care (01) | DRG 287 ==
LOC: ED 19:41 → 4A 04-17 05:02
PROVIDERS: ADMIT Internal Medicine; ATTEND Internal Medicine
PROC: 4A023N7 Measurement of Cardiac Sampling and Pressure, Left Heart, Percutaneous Approach (ICD-10-PCS; principal; 2017-04-18)
PROC: B2111ZZ Fluoroscopy of Multiple Coronary Arteries using Low Osmolar Contrast (ICD-10-PCS; 2017-04-18)
PROC: B2151ZZ Fluoroscopy of Left Heart using Low Osmolar Contrast (ICD-10-PCS; 2017-04-18)
DX: R07.9 Chest pain, unspecified (principal); R94.39 Abnormal result of other cardiovascular function study; K21.9 Gastro-esophageal reflux disease without esophagitis; R73.9 Hyperglycemia, unspecified; I10 Essential (primary) hypertension; E78.00 Pure hypercholesterolemia, unspecified; Z82.49 Family history of ischemic heart disease and other diseases of the circulatory system; Z88.0 Allergy status to penicillin; Z88.1 Allergy status to other antibiotic agents; Z88.2 Allergy status to sulfonamides; Z88.5 Allergy status to narcotic agent; Z79.899 Other long term (current) drug therapy; Z79.82 Long term (current) use of aspirin; Z98.51 Tubal ligation status; E66.9 Obesity, unspecified
CPT/HCPCS: 36415; 71010; 78452; 80048; 82550; 82553; 82962; 84484; 85025; 85610; 93005; 93010; 93017; 93458; 96374; 96375; 99285; A9270-GY; A9502; C1769; C1894; J1644; J2250; J2785; J3010; J7030; J7040; Q9967

== ENCOUNTER 2017-07-21 14:01 | Outpatient (CLI) | payer MEDICARE ==
--- NOTE | 2017-07-25 08:22 | Magnetic Resonance Report ---
MR LOWER EXTREMITY JOINT RIGHT WITHOUT CONTRAST HISTORY: Right knee pain. TECHNIQUE: Multisequence, multiplanar MRI without contrast was performed through the right knee. COMPARISON: None at this facility. FINDINGS: There is a moderate joint effusion extending to the suprapatellar bursa. Small popliteal cyst measures up to 1 cm. There is focal abnormal bone marrow signal in the subchondral region of the medial tibial plateau. There is either a 9 mm subchondral cyst or possibly an osteochondral defect with surrounding bone marrow edema in this area. Focal cartilage loss is also suspected overlying this area. No unstable osteochondral defect is appreciated. The remaining bone marrow signal is within normal limits. Mild medial compartment joint space narrowing and marginal spurring is identified consistent with mild osteoarthritic changes. The lateral compartment and patellofemoral space are within normal limits. There is a focal area of abnormal signal in the posterior horn of the medial meniscus which is best demonstrated on sagittal proton density image 22. This appears to represent an small meniscal tear. This may represent a parrot-beak tear. The lateral meniscus is unremarkable. The ACL, PCL, MCL, LCL complex and extensor complex are intact. IMPRESSION: Joint effusion and small popliteal cyst. 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 Subchondral cyst or possibly an osteochondral defect involving the medial tibial plateau with surrounding bone marrow edema and mild overlying cartilage loss. Focal tear in the posterior horn of the medial meniscus.
== END 2017-07-21 14:02 | disposition home or self-care (01) ==
LOC: MRI 14:01
PROVIDERS: ATTEND General Practice
DX: S83.241A Other tear of medial meniscus, current injury, right knee, initial encounter (principal); M71.21 Synovial cyst of popliteal space [Baker], right knee; M17.11 Unilateral primary osteoarthritis, right knee; X58.XXXA Exposure to other specified factors, initial encounter; Y93.89 Activity, other specified; Y92.89 Other specified places as the place of occurrence of the external cause; Y99.8 Other external cause status
CPT/HCPCS: 73721